=== PATIENT | male | born 1980 | race American Indian/Alaskan Native ===

== ENCOUNTER 2017-10-24 21:03 | Emergency (ER) | payer OTHER ==
[2017-10-25] MEDS ORDERED: MOTRIN PO ONE (01:04)
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
--- NOTE | 2017-10-25 02:18 | XRay Report ---
FINAL REPORT EXAM: XR SPINE LUMBOSACRAL 2-3V HISTORY: lower back pain COMPARISON: None available. FINDINGS: Three views of the lumbar spine obtained. Lumbar vertebral body heights and disc heights are preserved. Pedicles are intact. No spondylolisthesis. IMPRESSION: Lumbar vertebral body heights and disc heights are preserved.
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
[2017-10-25 04:26] VITALS: BP 130/82
== END 2017-10-25 04:27 | disposition home or self-care (01) ==
LOC: ED 21:03
DX: S39.012A Strain of muscle, fascia and tendon of lower back, initial encounter (principal); I10 Essential (primary) hypertension; E11.9 Type 2 diabetes mellitus without complications; Z79.4 Long term (current) use of insulin; V43.52XA Car driver injured in collision with other type car in traffic accident, initial encounter; Y93.89 Activity, other specified; Y92.89 Other specified places as the place of occurrence of the external cause; Y99.8 Other external cause status
CPT/HCPCS: 72100; 99283